=== PATIENT | female | born 1945 | race Caucasian/White ===

== ENCOUNTER 2019-01-16 17:44 | Emergency (ER) | payer OTHER ==
[~2019-01-16] VITALS: Ht 152.4 cm; Wt 54.4 kg
[~2019-01-16 17:44] MED LIST: AMLO5TAB8 PO; CIPR250T6 PO; GABA300C PO; IBUP-2213 PO; RANI-287 PO
[2019-01-16 17:50] VITALS: BP 122/73
--- NOTE | 2019-01-16 17:50 | NUR ---
PT TAKEN TO BED 5 VIA WHEELCHAIR
[2019-01-16] MEDS ORDERED: KETOROLAC 30 MG/ML VIAL IM ONE (18:50)
--- NOTE | 2019-01-16 19:11 | NUR ---
REPORT GIVEN TO MAGALY CAMACHO.
--- NOTE | 2019-01-16 19:15 | NUR ---
X-RAY AT BEDSIDE.
[2019-01-16 21:25] VITALS: BP 117/78
--- NOTE | 2019-01-16 21:25 | NUR ---
Patient discharged with v/s stable. Written and verbal after care instructions given and explained. Patient alert, oriented and verbalized understanding of instructions. Wheel Chair Assisted with by caregiver. All questions addressed prior to discharge. ID band removed. Patient advised to follow up with PMD. Rx of TYLENOL given. Patient educated on indication of medication including possible reaction and side effects. Opportunity to ask questions provided and answered.
== END 2019-01-16 21:25 | disposition home or self-care (01) ==
LOC: MED 17:44
DX: M17.0 Bilateral primary osteoarthritis of knee (principal); M79.601 Pain in right arm; M79.602 Pain in left arm; R10.30 Lower abdominal pain, unspecified; J44.9 Chronic obstructive pulmonary disease, unspecified; K21.9 Gastro-esophageal reflux disease without esophagitis; I10 Essential (primary) hypertension; Z88.0 Allergy status to penicillin; Z79.899 Other long term (current) drug therapy
CPT/HCPCS: 73562; 96372; 99283; J1885; Q0092

== ENCOUNTER 2019-09-22 16:48 | Emergency (ER) | payer OTHER ==
[~2019-09-22 16:48] MED LIST changes: -CIPR250T6 PO
== END 2019-09-22 19:50 | disposition home or self-care (01) ==
LOC: MED 16:52
DX: S90.811A Abrasion, right foot, initial encounter (principal); J44.9 Chronic obstructive pulmonary disease, unspecified; I10 Essential (primary) hypertension; K21.9 Gastro-esophageal reflux disease without esophagitis; X58.XXXA Exposure to other specified factors, initial encounter; Y93.89 Activity, other specified; Y92.89 Other specified places as the place of occurrence of the external cause; Y99.8 Other external cause status; Z88.0 Allergy status to penicillin; Z79.899 Other long term (current) drug therapy
CPT/HCPCS: 99281

== ENCOUNTER 2022-01-08 12:09 | Emergency (ER) | payer OTHER ==
[~2022-01-08] VITALS: Ht 165.1 cm; Wt 78.0 kg
[~2022-01-08 12:09] MED LIST changes: -AMLO5TAB8 PO; -GABA300C PO; -RANI-287 PO
--- NOTE | 2022-01-08 12:30 | NUR ---
BIB WHEELCHAIR TO ER BED 5
[2022-01-08 12:34] VITALS: BP 135/80
--- NOTE | 2022-01-08 13:02 | NUR ---
DR DAIGLE AT BEDSIDE.
--- NOTE | 2022-01-08 13:07 | NUR ---
DR KNIGHT AT BEDSIDE FOR RECTAL EXAM.
--- NOTE | 2022-01-08 13:48 | NUR ---
URINE COLLECTED AND WALKED TO THE LAB.
--- NOTE | 2022-01-08 13:49 | NUR ---
LAB AT BEDSIDE.
[2022-01-08 14:18] LABS: BASOPHILS # (AUTO) 0.2 K/uL (0.00-0.22); BASOPHILS % (AUTO) 2.4 % (0.0-2.0); EOSINOPHILS # (AUTO) 0.4 K/uL (0-0.4); EOSINOPHILS % (AUTO) 5.2 % (0.0-4.0); HEMATOCRIT 38.5 % (36-48); LYMPHOCYTES # (AUTO) 1.4 K/uL (2.5-16.5); LYMPHOCYTES % (AUTO) 16.6 % (20.5-51.1); MEAN CORPUSCULAR HEMOGLOBIN 31 pg (27-31); MEAN CORPUSCULAR HGB CONC 34 g/dL (33-37); MEAN CORPUSCULAR VOLUME 91.8 fL (80-94); MONOCYTES # (AUTO) 0.5 K/uL (0.8-1.0); MONOCYTES % (AUTO) 6.3 % (1.7-9.3); NEUTROPHILS % (AUTO) 69.5 % (42.2-75.2); PLATELET COUNT (AUTO) 406 K/uL (140-450); RED CELL DISTRIBUTION WIDTH 14.6 % (11.6-13.7); WHITE BLOOD COUNT (AUTO) 8.6 K/uL (4.8-10.8)
--- NOTE | 2022-01-08 14:49 | NUR ---
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 2-3 WKS AND WAS SEEN AND TREATED BY PMD WITH ANTIBIOTICS. PT DENIES CHEST PAIN, SOB, SYNCOPE OR DIZZINESS. PT IS NONVERBAL, A&O X2. BED IN LOWEST POSITION, BED RAIL X1. PMH: PER FAMILY UNABLE TO RECALL MEDICAL HISTORY MEDS: ACETAMINOPHEN PRN ALLERGIES PENICILLIN
[2022-01-08 15:11] LABS: APPEARANCE,URINE CLOUDY (CLEAR)
[2022-01-08 15:12] LABS: BILIRUBIN,URINE NEGATIVE (NEGATIVE); BLOOD, URINE 3+ (NEGATIVE); COLOR,URINE BLOODY (YELLOW); LEUKOCYTE ESTERASE ,URINE 2+ (NEGATIVE); NITRITE, URINE POSITIVE (NEGATIVE); UGLUCOSE NEGATIVE (NEGATIVE)
[2022-01-08] MEDS ORDERED: DOCU-300 PO (15:25)
[2022-01-08] MEDS ORDERED: SULF-59 PO (15:25)
[2022-01-08 15:29] LABS: RBC,URINE TOO NUMEROUS TO COUN /HPF (0-5); WBC,URINE TOO MANY TO COUNT /HPF (0-5)
[2022-01-08 15:31] LABS: ALBUMIN 3.4 g/dL (3.4-5.0); ASPARTATE AMINOTRANSFERASE 19 U/L (15-37); CHLORIDE 96 mmol/L (98-107); CREATININE 0.5 mg/dL (0.6-1.3); GLUCOSE 96 mg/dL (74-106); LIPASE 187 U/L (73-393); SODIUM SERUM 131 mmol/L (136-145); TOTAL BILIRUBIN 0.5 mg/dL (0.0-1.0); UREA NITROGEN, BLOOD 12 mg/dL (7-18)
[2022-01-08 16:05] VITALS: BP 102/64
--- NOTE | 2022-01-08 16:06 | NUR ---
Patient discharged with v/s stable. Written and verbal after care instructions given and explained. Patient alert, oriented and verbalized understanding of instructions. Ambulatory with steady gait. All questions addressed prior to discharge. ID band removed. Patient advised to follow up with PMD. Rx of DOCUSATE, BACTRIM given. Patient educated on indication of medication including possible reaction and side effects. Opportunity to ask questions provided and answered.
--- NOTE | 2022-01-12 19:03 | NUR ---
LATE ENTRY. +URINE CULTURE RESULT RECEIVED FROM LAB. SIGNED BY DR HAYES. COPY OF DISCREPANCY BACK LOG IN FOLDER. COPY SENT TO INFECTION CONTROL. Addendum: 01/12/22 at [email or web address] HAYES
== END 2022-01-08 16:05 | disposition home or self-care (01) ==
LOC: MED 12:09
DX: K92.1 Melena (principal); N39.0 Urinary tract infection, site not specified; J44.9 Chronic obstructive pulmonary disease, unspecified; K21.9 Gastro-esophageal reflux disease without esophagitis; I10 Essential (primary) hypertension; Z88.0 Allergy status to penicillin
CPT/HCPCS: 36415; 80053; 81001; 83690; 85025; 87086; 99283